=== PATIENT | female | born 1995 | race Caucasian/White ===

== ENCOUNTER 2018-01-25 05:49 | Inpatient (IN) ==
[2018-01-25] MEDS ORDERED: Sodium Chlor 0.9% Inj 500 ML IV.SIG PRN (05:56)
[2018-01-25] MEDS ORDERED: fentaNYL Citrate Inj 100 MCG/2 ML Ampul IV.PUSH PRN ×2 (05:56)
[2018-01-25] MEDS ORDERED: Naloxone Inj 0.4 MG/ML Vial IV.PUSH PRN (05:56)
[2018-01-25] MEDS ORDERED: Penicillin G Potassium Inj 5,000,000 UNIT in Sodium Chloride 0.9% Inj 100 ML IV.SIG ONE (05:56)
[2018-01-25] MEDS ORDERED: Sod Chloride 0.9% Inj 1,000 ML IV.CONT PRN (05:56)
[2018-01-25] MEDS ORDERED: Citric Acid/Sodium Citrate Liq 30 ML UDC PO SCH (06:00)
--- NOTE | 2018-01-25 06:10 | ED ---
History of Present Illness Primary Care Physician: UNKNOWN Chief Complaint: Water broke and pain History of Present Illness: This 22-year-old white female presents to OB ED with gross rupture membranes in active labor. She has no care. On OB ED she is noted to have SROM and is hany in active labor cervix is 8--9 cm 100% effaced 0 station and in a vertex presentation Weeks Gestation:: 35 Para: 0 : 1 Review of Systems All other systems reviewed negative except as stated in HPI PMFSH - Social History I have reviewed the patient's Social History: No - Tobacco History Tobacco Use In Past 30 Days: Yes Smoking Status: Smoker, status unknown - Alcohol History How Often Do You Have a Drink Containing Alcohol: Unable to Obtain - Substance Use History Substance History: Unable to Obtain - Travel History History of Recent Travel: No Recent Travel in the [place] Within the Last 8 Weeks: No Recent Travel Out of the Country Within the Last 8 Weeks: No Medications and Allergies Active Medications: Active Medications Citric Acid/Sodium Citrate (Sodium Citrate/Citric Acid Liq) 30 ml PO [employer] [facility] Stop: 01/29/18 05:59 Fentanyl Citrate (Fentanyl Inj) 50 mcg IV.PUSH Q1H PRN PRN Reason: Pain Scale 3 - 5 Fentanyl Citrate (Fentanyl Inj) 100 mcg IV.PUSH Q1H PRN PRN Reason: PAIN SCALE 6 TO 10 Lactated Ringer's (Lr 1000 Ml Inj) 1,000 mls @ 3,000 mls/hr IV.SIG UNSCH PRN PRN Reason: compromise or epidural Lactated Ringer's (Lr 1000 Ml Inj) 1,000 mls @ 125 mls/hr IV.CONT .Q8H RIO Sodium Chloride (Ns Inj) 500 mls @ 1,000 mls/hr IV.SIG UNSCH PRN PRN Reason: SEE LABEL COMMENTS Sodium Chloride (Ns Inj) 1,000 mls @ 100 mls/hr IV.CONT .Q10H PRN PRN Reason: SEE LABEL COMMENTS Oxytocin (Pitocin 30 Units/Ns 500 Ml Premix) 30 units in 500 mls @ 999 mls/hr IV.SIG BOLUS ONE Stop: 01/25/18 06:26 Penicillin G Potassium 5,000, (000 unit/ Sodium Chloride) 100 mls @ 200 mls/hr IV.SIG ONCE ONE Stop: 01/25/18 06:25 Penicillin G Potassium 2,500, (000 unit/ Sodium Chloride) 100 mls @ 200 mls/hr IV.SIG Q4H RIO Lidocaine HCl (Xylocaine 1% Inj) 0.1 ml I-DERMAL PRN PRN PRN Reason: For IV start Stop: 01/28/18 05:55 Lidocaine HCl (Xylocaine 1% Inj) 10 ml INFILTRATN PRN PRN PRN Reason: For episiotomy repair Stop: 01/27/18 05:55 Mineral Oil (Muri-Lube Oil) 10 ml TOPICAL PRN PRN PRN Reason: PRN perineal massage Naloxone HCl (Narcan Inj) 0.1 mg IV.PUSH Q2M PRN PRN Reason: for opiate reversal Ondansetron HCl (Zofran Inj) 4 mg IV.PUSH Q6H PRN PRN Reason: NAUSEA OR VOMITING Allergies Allergy/AdvReac Type Severity Reaction Status Date / Time No Known Allergies Allergy Unverified 01/25/18 05:56 Home Medications Medication Instructions Recorded Confirmed Type No Known Home Medications 01/25/18 01/25/18 History Exam Narrative: GENERAL: Well-nourished, well-developed patient. SKIN: Warm and dry. HEAD: Normocephalic and atraumatic. EYES: No scleral icterus. No injection or drainage. ENT: No nasal drainage noted. Mucous membranes pink. Airway patent. NECK: Supple, trachea midline. No JVD. CARDIOVASCULAR: Regular rate and rhythm without murmurs, gallops, or rubs. RESPIRATORY: Breath sounds equal bilaterally. No accessory muscle use. BREASTS: Bilateral exam showed no masses , no retractions, no nipple discharge. ABDOMEN/GI: Abdomen soft, non-tender, bowel sounds present, no rebound, no guarding Gravid to [36-] weeks size Fundal Height: [36-] GENITOURINARY: External Genitalia: intact and normal in appearance BUS glands: [-] Cervix: [ant-] Dilatation: [-8-9] Effacement: [-100] Station: [0-] Presentation: [vtx-] Membranes: ruptured Uterine Contractions: [reg-] FHT's: Category: [1-] Baseline: [-133] Reactive: [R-] Variability: [-mod] Decels: [0-] EXTREMITIES: No cyanosis or edema. BACK: Nontender without obvious deformity. No CVA tenderness. NEUROLOGICAL: Awake and alert. Motor and sensory grossly within normal limits. Five out of 5 muscle strength in all muscle groups. Normal speech. Assessment and Plan - Diagnosis (1) Leakage, amniotic fluid Code(s): O42.90 - Premature rupture of membranes, unspecified as to length of time between rupture and onset of labor, unspecified weeks of gestation Status : Acute (2) No care in current in third trimester Code(s): O09.33 - Supervision of with insufficient care, third trimester Status: Acute (3) Labor, precipitous Code(s): O62.3 - Precipitate labor Status: Acute - Plan This patient primiparous approximately 36 weeks gestation he has no care no idea when her last menstrual period was, presents in active precipitous labor with gross rupture the membranes. Baby by palpation feels to be approximately 6 pounds. On admission she is dilated 8-9cm with the baby's head deep in the pelvis at 0 station patient is flailing about and screaming with pain,., plan to admit to labor and delivery, draw lab , begin penicillin , anticipate vaginal delivery very soon Discharge Plan - Discharge Disposition Patient Disposition: 30 Still Patient - Discharge Condition Condition: Stable - Physicians Team ED Provider: Vitaliy Pro Primary Care Provider: UNKNOWN, - Rxs /Orders / Referrals /Forms Prescriptions: No Action No Known Home Medications - Discharge Instructions Print Language: Tuvaluan
[2018-01-25 06:14] LABS: Baso # (Auto) 0.1 th/mm3 (0.0-0.2); Baso % (Auto) 0.4 % (0.0-2.0); Eos # (Auto) 0.3 th/mm3 (0.0-0.4); Eos % (Auto) 1.5 % (0.0-4.0); Hematocrit 36.9 % (35.0-46.0); Hemoglobin 13.1 gm/dL (11.6-15.3); Lymph # (Auto) 2.3 th/mm3 (1.0-4.8); Lymph % (Auto) 12.4 % (9.0-44.0); Mean Corpuscular HGB Conc 35.4 % (32.0-36.0); Mean Corpuscular Hemoglobin 31.9 pg (27.0-34.0); Mean Platelet Volume 8.5 fL (7.0-11.0); Mono # (Auto) 1.4 th/mm3 (0.0-0.9); Mono % (Auto) 7.7 % (0.0-8.0); Neut # (Auto) 14.3 th/mm3 (1.8-7.7); Platelet Count 250 th/mm3 (150-450); White Blood Count 18.2 th/mm3 (4.0-11.0)
[2018-01-25] MEDS: Oxytocin 30 Units/500ml Premix 30 UNITS/500 ML BAG IV.SIG ONE ×2 (06:17→06:51)
[2018-01-25] MEDS ORDERED: Lidocaine 1% Inj 50 ML Vial ONE (06:35)
[2018-01-25 07:08] LABS: Cord Arterial Blood HCO3 21.9
[2018-01-25 07:16] LABS: Rubella IgG Antibody 31.8 IU/mL (10.0-500.0)
[2018-01-25] MEDS ORDERED: Oxytocin 30 Units/500ml Premix 30 UNITS/500 ML BAG IV.CONT PRN (07:17)
[2018-01-25] MEDS ORDERED: Benzocaine 20% Top Spray 60 ML Can TOPICAL PRN (07:17)
[2018-01-25] MEDS ORDERED: Bisacodyl 10 MG Supp RECTAL PRN (07:17)
[2018-01-25] MEDS ORDERED: Acetaminophen 325 MG Tablet PO PRN (07:17)
[2018-01-25] MEDS ORDERED: Witch Hazel 50%/Glyderin 12.5% 40 Pad Jar RECTAL PRN (07:17)
--- NOTE | 2018-01-25 07:22 | P.OBDELI ---
Weeks Gestation: 37 (Unknown due to no care) Patient Started Active Labor: Yes Active Labor Start Date: 01/25/18 Medical Induction of Labor: No Artificial Rupture of Membrane: No Anesthesia: Lidocaine local to perineum Episiotomy: midline Vaginal Delivery: Normal Presentation: Occiput anterior Nuchal Cord: None Delayed Cord Clamping (45 sec): Yes Placenta: Spontaneous delivery Laceration: Episiotomy Repair: Chromic running Estimated blood loss (mL): 100 Infant: Male Infant Male A Delivery Date: 01/25/18 Delivery Time: 06:49 Weight: 2680 kg score (1 min): 8 score (5 min): 9 Additional Information: Delivered by Dr. Yip, supervised by Dr. Pro.
--- NOTE | 2018-01-25 07:24 | P.HPOB ---
OB - ED Note Patient Name: Tamie Coffey Date of : 89 Patient Status: Inpatient Attending Provider: Vitaliy Pro Date: 01/25/18 06:00 Initialization Date: 01/25/18 06:00 History of Present Illness Primary Care Physician: UNKNOWN Chief Complaint: Water broke and pain History of Present Illness: This 22-year-old white female presents to OB ED with gross rupture membranes in active labor. She has no care. On OB ED she is noted to have SROM and is hany in active labor cervix is 8--9 cm 100% effaced 0 station and in a vertex presentation. When questioned about drug use she said that she smoked cigarettes and drank alcohol during her . When inquired about drug use she states that "she dabbled in some things" but would not say specifically what drugs she used during . Unsure of her LMP. Weeks Gestation:: 35 Para: 0 : 1 Review of Systems All other systems reviewed negative except as stated in HPI PMFSH - Social History I have reviewed the patient's Social History: No - Tobacco History Tobacco Use In Past 30 Days: Yes Smoking Status: Smoker, status unknown - Alcohol History How Often Do You Have a Drink Containing Alcohol: Unable to Obtain - Substance Use History Substance History: Unable to Obtain - Travel History History of Recent Travel: No Recent Travel in the [place] Within the Last 8 Weeks: No Recent Travel Out of the Country Within the Last 8 Weeks: No Medications and Allergies Active Medications: Active Medications Citric Acid/Sodium Citrate (Sodium Citrate/Citric Acid Liq) 30 ml PO [facility] [facility] [facility] Stop: 01/29/18 05:59 Fentanyl Citrate (Fentanyl Inj) 50 mcg IV.PUSH Q1H PRN PRN Reason: Pain Scale 3 - 5 Fentanyl Citrate (Fentanyl Inj) 100 mcg IV.PUSH Q1H PRN PRN Reason: PAIN SCALE 6 TO 10 Lactated Ringer's (Lr 1000 Ml Inj) 1,000 mls @ 3,000 mls/hr IV.SIG UNSCH PRN PRN Reason: compromise or epidural Lactated Ringer's (Lr 1000 Ml Inj) 1,000 mls @ 125 mls/hr IV.CONT .Q8H [facility] Sodium Chloride (Ns Inj) 500 mls @ 1,000 mls/hr IV.SIG UNSCH PRN PRN Reason: SEE LABEL COMMENTS Sodium Chloride (Ns Inj) 1,000 mls @ 100 mls/hr IV.CONT .Q10H PRN PRN Reason: SEE LABEL COMMENTS Oxytocin (Pitocin 30 Units/Ns 500 Ml Premix) 30 units in 500 mls @ 999 mls/hr IV.SIG BOLUS ONE Stop: 01/25/18 06:26 Penicillin G Potassium 5,000, (000 unit/ Sodium Chloride) 100 mls @ 200 mls/hr IV.SIG ONCE ONE Stop: 01/25/18 06:25 Penicillin G Potassium 2,500, (000 unit/ Sodium Chloride) 100 mls @ 200 mls/hr IV.SIG Q4H RIO Lidocaine HCl (Xylocaine 1% Inj) 0.1 ml I-DERMAL PRN PRN PRN Reason: For IV start Stop: 01/28/18 05:55 Lidocaine HCl (Xylocaine 1% Inj) 10 ml INFILTRATN PRN PRN PRN Reason: For episiotomy repair Stop: 01/27/18 05:55 Mineral Oil (Muri-Lube Oil) 10 ml TOPICAL PRN PRN PRN Reason: PRN perineal massage Naloxone HCl (Narcan Inj) 0.1 mg IV.PUSH Q2M PRN PRN Reason: for opiate reversal Ondansetron HCl (Zofran Inj) 4 mg IV.PUSH Q6H PRN PRN Reason: NAUSEA OR VOMITING Allergies Allergy/AdvReac Type Severity Reaction Status Date / Time No Known Allergies Allergy Unverified 01/25/18 05:56 Home Medications Medication Instructions Recorded Confirmed Type No Known Home Medications 01/25/18 01/25/18 History Exam Narrative: GENERAL: Well-nourished, well-developed patient. SKIN: Warm and dry. HEAD: Normocephalic and atraumatic. EYES: No scleral icterus. No injection or drainage. ENT: No nasal drainage noted. Mucous membranes pink. Airway patent. NECK: Supple, trachea midline. No JVD. CARDIOVASCULAR: Regular rate and rhythm without murmurs, gallops, or rubs. RESPIRATORY: Breath sounds equal bilaterally. No accessory muscle use. BREASTS: Bilateral exam showed no masses , no retractions, no nipple discharge. ABDOMEN/GI: Abdomen soft, non-tender, bowel sounds present, no rebound, no guarding Gravid to [36-] weeks size Fundal Height: [36-] GENITOURINARY: External Genitalia: intact and normal in appearance BUS glands: [-] Cervix: [ant-] Dilatation: [-8-9] Effacement: [-100] Station: [0-] Presentation: [vtx-] Membranes: ruptured Uterine Contractions: [reg-] FHT's: Category: [1-] Baseline: [-133] Reactive: [R-] Variability: [-mod] Decels: [0-] EXTREMITIES: No cyanosis or edema. BACK: Nontender without obvious deformity. No CVA tenderness. NEUROLOGICAL: Awake and alert. Motor and sensory grossly within normal limits. Five out of 5 muscle strength in all muscle groups. Normal speech. Assessment and Plan - Diagnosis (1) Leakage, amniotic fluid Code(s): O42.90 - Premature rupture of membranes, unspecified as to length of time between rupture and onset of labor, unspecified weeks of gestation Status : Acute (2) No care in current in third trimester Code(s): O09.33 - Supervision of with insufficient care, third trimester Status: Acute (3) Labor, precipitous Code(s): O62.3 - Precipitate labor Status: Acute - Plan This patient primiparous approximately 36 weeks gestation he has no care no idea when her last menstrual period was, presents in active precipitous labor with gross rupture the membranes. Baby by palpation feels to be approximately 6 pounds. On admission she is dilated 8-9cm with the baby's head deep in the pelvis at 0 station patient is flailing about and screaming with pain,., plan to admit to labor and delivery, draw lab , begin penicillin , anticipate vaginal delivery very soon Discharge Plan - Discharge Disposition Patient Disposition: 30 Still Patient - Discharge Condition Condition: Stable - Physicians Team ED Provider: Vitaliy Pro Primary Care Provider: UNKNOWN, - Rxs /Orders / Referrals /Forms Prescriptions: No Action No Known Home Medications - Discharge Instructions Print Language: Turkish
[2018-01-25 07:47] LABS: Hepatitis A IgM Antibody Nonreactive (Nonreactive)
[2018-01-25 07:48] LABS: Hepatitits B Surface Antigen Nonreactive (Nonreactive)
[2018-01-25 08:31] LABS: Bacteria,Urine Many /hpf; Bilirubin,Urine Negative (Negative); Clarity,Urine Cloudy (Clear); Color,Urine Yellow (Yellw/Straw); Glucose,Urine (UA) Negative (Negative); Leukocyte Esterase,Urine Negative (Negative); Nitrite,Urine Negative (Negative); Specific Gravity,Urine 1.023 (1.002-1.035)
[2018-01-25 08:32] LABS: Amphetamine Urine With Conf Neg (Neg); Benzodiazepine Urine With Conf Neg (Neg); Cocaine Urine With Conf Neg (Neg); Opiates Urine With Conf Neg (Neg)
[2018-01-25 08:43] LABS: Cannabinoid Urine With Conf Neg (Neg)
[2018-01-25] MEDS ORDERED: Penicillin G Potassium Inj 2,500,000 UNIT in Sodium Chlor 0.9% Inj 100 ML IV.SIG SCH (10:00)
[2018-01-25] MEDS ORDERED: Measles/Mumps/Rubella Vaccine Inj 0.5 ML Vial SQ ONE (16:00)
[2018-01-25] MEDS ORDERED: Diphtheria/Tetanus/Pertussis Vaccine Inj 0.5 ML Syringe IM ONE (16:00)
[2018-01-25] MEDS ORDERED: Zolpidem Tartrate 5 MG Tablet PO PRN (21:00)
[2018-01-25] MEDS: Senna/Docusate Sodium 8.6/50 MG Tablet PO SCH (23:58)
[2018-01-26 08:10] VITALS: RESP 20
--- NOTE | 2018-01-26 08:58 | P.PNOB ---
Subjective Post day: 1 Interval history: day # 1. AFVSS overnight. Pain well-controlled. Decreased lochia. Denies dysuria. No breast tenderness. She is feeding the baby via bottle. Appetite good. No nausea or vomiting. Passing flatus. No bowel movements. Ambulating well. Denies calf pain, shortness of breath, or cough. Otherwise, she is doing well this morning and has no other complaints. Objective Vital Signs/I&O: Vital Signs 01/25/18 11:15 01/25/18 20:00 01/26/18 08:00 Temperature 97.9 F 98.6 F 97.8 F Pulse Rate 94 H 63 86 Respiratory Rate 20 20 Blood Pressure 141/84 H 124/73 123/73 Result Diagrams: 01/25/18 06:00 Objective Remarks: GENERAL: Well-nourished, well-developed patient. CARDIOVASCULAR: Regular rate and rhythm without murmurs, gallops, or rubs. RESPIRATORY: Breath sounds equal bilaterally. No accessory muscle use. ABDOMEN/GI: Abdomen soft, non-tender. Fundus: Firm, non-tender at umbilicus. GENITOURINARY: Light to moderate bleeding. EXTREMITIES: No cyanosis or edema, non-tender, without signs of DVT. Medications and IVs: Active Medications Acetaminophen (Tylenol) 650 mg PO Q4H PRN PRN Reason: PAIN SCALE 1 TO 2 Al Hydroxide/Mg Hydroxide (Milk Of Rosalba Limelinda) 30 ml PO Q12H PRN PRN Reason: Mild Constipation Benzocaine (Americaine 20% [place]) 1 spray TOPICAL Q4H PRN PRN Reason: For Perineum Discomfort Bisacodyl (Dulcolax Supp) 10 mg RECTAL DAILY PRN PRN Reason: SEVERE CONSITIPATION Sodium Chloride (Ns Inj) 1,000 mls @ 100 mls/hr IV.CONT .Q10H PRN PRN Reason: SEE LABEL COMMENTS Oxytocin (Pitocin 30 Units/Ns 500 Ml Premix) 30 units in 500 mls @ 100 mls/hr IV.CONT UNSCH PRN PRN Reason: Heavy bleeding Last Admin: 01/25/18 08:00 Dose: 100 mls/hr Ibuprofen (Motrin) 800 mg PO Q8H PRN PRN Reason: For Cramping Last Admin: 01/25/18 11:32 Dose: 800 mg Lactulose (Lactulose Liq) 30 ml PO DAILY PRN PRN Reason: SEVERE CONSITIPATION Naloxone HCl (Narcan Inj) 0.1 mg IV.PUSH Q2M PRN PRN Reason: for opiate reversal Ondansetron HCl (Zofran Inj) 4 mg IV.PUSH Q6H PRN PRN Reason: NAUSEA OR VOMITING Ondansetron HCl (Zofran Odt) 4 mg PO Q6H PRN PRN Reason: NAUSEA OR VOMITING Senna/Docusate Sodium (Radha-Colace) 1 tab PO BID [facility] Last Admin: 01/25/18 23:58 Dose: Not Given Sennosides (Senokot) 17.2 mg PO Q12H PRN PRN Reason: Moderate Constipation Sodium Chloride (Ns Flush) 2 ml IV.FLUSH BID [facility] Last Admin: 01/25/18 23:57 Dose: Not Given Sodium Chloride (Ns Flush) 2 ml IV.FLUSH PRN PRN PRN Reason: FLUSH AFTER USING IV ACCESS Witch Trinity/Glycerin (Tucks Pads) 1 applicatio RECTAL QID PRN PRN Reason: HEMORRHOIDS Zolpidem Tartrate (Ambien) 5 mg PO HS PRN PRN Reason: SLEEP Assessment and Plan - Diagnosis (1) Vaginal delivery Code(s): O80 - Encounter for full-term uncomplicated delivery Status: Acute (2) 35 to 36 weeks gestation of Status: Acute (3) No care in current Code(s): O09.30 - Supervision of with insufficient care, unspecified trimester Status: Acute - Plan 22 y/o who is PPD# 1 s/p precipitous vaginal delivery. -Continue routine care. -Tylenol and Motrin as needed for pain. -Encouraged OOB. Advised pelvic rest for 6 wks. -Will need a f/u appt. within 6 wks. -Contraception: she would like to continue to consider her options. -Anticipate discharge tomorrow Patient received no care during this - labs negative, except for Hep C IgG positive -UDS negative -Case management consulted sdw Dr. Berry and OB attending, Dr. Valdez
[2018-01-26] MEDS: Senna/Docusate Sodium 8.6/50 MG Tablet PO SCH ×2 (09:44→23:23)
--- NOTE | 2018-01-27 08:15 | P.PNOB ---
Subjective Post day: 2 Interval history: day # 2. AFVSS overnight. Pain well-controlled. Decreased lochia. Denies dysuria. No breast tenderness. She is feeding the baby via bottle. Appetite good. No nausea or vomiting. Passing flatus. Patient has had a bowel movement. Ambulating well. Denies calf pain, shortness of breath, or cough. Otherwise, she is doing well this morning and has no other complaints. Objective Vital Signs/I&O: Vital Signs 01/26/18 20:00 Temperature 98.8 F Pulse Rate 94 H Respiratory Rate 20 Blood Pressure 143/77 H Result Diagrams: 01/25/18 06:00 Objective Remarks: GENERAL: Well-nourished, well-developed patient. CARDIOVASCULAR: Regular rate and rhythm without murmurs, gallops, or rubs. RESPIRATORY: Breath sounds equal bilaterally. No accessory muscle use. ABDOMEN/GI: Abdomen soft, non-tender. Fundus: Firm, non-tender below umbilicus. GENITOURINARY: Light to moderate bleeding. EXTREMITIES: No cyanosis or edema, non-tender, without signs of DVT. Medications and IVs: Active Medications Acetaminophen (Tylenol) 650 mg PO Q4H PRN PRN Reason: PAIN SCALE 1 TO 2 Al Hydroxide/Mg Hydroxide (Milk Of Rosalba Torres) 30 ml PO Q12H PRN PRN Reason: Mild Constipation Benzocaine (Americaine 20% [place]) 1 spray TOPICAL Q4H PRN PRN Reason: For Perineum Discomfort Bisacodyl (Dulcolax Supp) 10 mg RECTAL DAILY PRN PRN Reason: SEVERE CONSITIPATION Diphenhydramine HCl (Benadryl Inj) 50 mg IM Q6H PRN PRN Reason: ITCHING Last Admin: 01/26/18 21:16 Dose: 50 mg Sodium Chloride (Ns Inj) 1,000 mls @ 100 mls/hr IV.CONT .Q10H PRN PRN Reason: SEE LABEL COMMENTS Oxytocin (Pitocin 30 Units/Ns 500 Ml Premix) 30 units in 500 mls @ 100 mls/hr IV.CONT UNSCH PRN PRN Reason: Heavy bleeding Last Admin: 01/25/18 08:00 Dose: 100 mls/hr Ibuprofen (Motrin) 800 mg PO Q8H PRN PRN Reason: For Cramping Last Admin: 01/26/18 09:35 Dose: 800 mg Lactulose (Lactulose Liq) 30 ml PO DAILY PRN PRN Reason: SEVERE CONSITIPATION Naloxone HCl (Narcan Inj) 0.1 mg IV.PUSH Q2M PRN PRN Reason: for opiate reversal Ondansetron HCl (Zofran Inj) 4 mg IV.PUSH Q6H PRN PRN Reason: NAUSEA OR VOMITING Ondansetron HCl (Zofran Odt) 4 mg PO Q6H PRN PRN Reason: NAUSEA OR VOMITING Senna/Docusate Sodium (Radha-Colace) 1 tab PO BID [facility] Last Admin: 01/26/18 23:23 Dose: Not Given Sennosides (Senokot) 17.2 mg PO Q12H PRN PRN Reason: Moderate Constipation Sodium Chloride (Ns Flush) 2 ml IV.FLUSH BID [facility] Last Admin: 01/26/18 23:22 Dose: Not Given Sodium Chloride (Ns Flush) 2 ml IV.FLUSH PRN PRN PRN Reason: FLUSH AFTER USING IV ACCESS Witch Trinity/Glycerin (Tucks Pads) 1 applicatio RECTAL QID PRN PRN Reason: HEMORRHOIDS Zolpidem Tartrate (Ambien) 5 mg PO HS PRN PRN Reason: SLEEP Assessment and Plan - Diagnosis (1) Vaginal delivery Code(s): O80 - Encounter for full-term uncomplicated delivery Status: Acute (2) 35 to 36 weeks gestation of Status: Acute (3) No care in current Code(s): O09.30 - Supervision of with insufficient care, unspecified trimester Status: Acute - Plan 22 y/o who is PPD# 2 s/p precipitous vaginal delivery. -Continue routine care. -Tylenol and Motrin as needed for pain. -Encouraged OOB. Advised pelvic rest for 6 wks. -Will need a f/u appt. within 6 wks. -Contraception: she would like to continue to consider her options. -Plan for discharge today Patient received no care during this - labs negative, except for Hep C IgG positive -UDS negative sdw Dr. Berry and OB attending, Dr. Pro
[2018-01-27 08:21] VITALS: BP 128/81; PULSE 85; TEMP 98
[2018-01-27] MEDS: Senna/Docusate Sodium 8.6/50 MG Tablet PO SCH (08:31)
== END 2018-01-27 11:25 | disposition home or self-care (01) ==
LOC: HOBED 05:49 → H2E 05:57 → H1EA 06:02
PROVIDERS: ADMIT Obstetrics & Gynecology Maternal & Fetal Medicine; ATTEND Obstetrics & Gynecology Maternal & Fetal Medicine